=== PATIENT | female | born 1985 | race Caucasian/White ===

== ENCOUNTER 2016-12-08 00:51 | Emergency (ER) | payer OTHER ==
[~2016-12-08] VITALS: Ht 157.5 cm; Wt 53.7 kg
[~2016-12-08 00:51] MED LIST: IMITREX25 MG PO; NEXPLANON68 MG SC; PAMELOR25 MG PO; REGLAN10 MG PO
[2016-12-08 01:04] VITALS: BP 131/78
[2016-12-08 01:38] LABS: HEMATOCRIT 40.6 % (36.0-46.0); MCH 32.6 PG (29.0-34.0); MCHC 34.2 G/DL (30.0-36.0); MCV 95.3 FL (83-99); MEAN PLAT.VOLUME 9.4 uM^3 (9.5-12.4); PLATELET COUNT 195 K/uL (156-360); RBC DIS.WIDTH-CV 11.9 % (11.8-14.6); RBC DIS.WIDTH-SD 41.7 % (39-53); RED BLOOD COUNT 4.26 M/uL (3.80-5.20); WHITE BLOOD COUNT 6.6 K/uL (4.1-10.2)
[2016-12-08 01:46] LABS: CHLORIDE 105 mEq/L (99-109); POTASSIUM 3.7 mEq/L (3.7-5.4); SODIUM 141 mEq/L (136-147)
[2016-12-08 01:47] LABS: GLUCOSE 94 mg/dL (70-99)
[2016-12-08 01:49] LABS: ANION GAP 9 MEQ/L (2-14)
[2016-12-08 01:51] LABS: GFR ESTIMATE (CALCULATED) > 59 mL/min/
[2016-12-08 01:52] LABS: UREA NITROGEN (BUN) 9 mg/dL (9-23)
[2016-12-08 01:58] LABS: TROP-I INTERPRETATION NEGATIVE; TROPONIN-I < 0.01 ng/mL (0.0-0.30)
== END 2016-12-08 04:21 | disposition home or self-care (01) ==
LOC: EME 00:51
DX: M54.12 Radiculopathy, cervical region (principal); R07.89 Other chest pain; M79.7 Fibromyalgia; F17.200 Nicotine dependence, unspecified, uncomplicated; Z82.49 Family history of ischemic heart disease and other diseases of the circulatory system
CPT/HCPCS: 71020; 80048; 84484; 85027; 93005